=== PATIENT | female | born 1960 | race Caucasian/White ===

== ENCOUNTER → 2021-02-13 | Outpatient (CLI) | payer OTHER ==
[~2021-02-13] MED LIST: ACETAMINOPHEN-1 EAC1 PO; ASPIR 8181 MG PO; ATIVAN1 MG PO; LIPITOR 20 MG T20 M1 PO; LISINOPRIL10 MG PO; NITROGLYCERIN0.4 MG SUBLING; VENTOLIN HFA 1818 GM INH
== END ==
LOC: M.RAD 10:02
PROVIDERS: ATTEND Internal Medicine
DX: Z12.31 Encounter for screening mammogram for malignant neoplasm of breast (principal); N63.20 Unspecified lump in the left breast, unspecified quadrant; R92.8 Other abnormal and inconclusive findings on diagnostic imaging of breast

== ENCOUNTER → 2021-02-18 | Outpatient (CLI) | payer OTHER ==
--- NOTE | 2021-02-26 21:06 | PATH ---
[address] [address] PATHOLOGY RPT PROCEDURE Name: RENEESSIE ST Room: [facility]#: [id number] Admission: 02/18/21 Date of : 56 Discharge: Report #: [id number] Path Case #: [id number] [facility] Accession Number: [id number] . 01 Material submitted: . breast - LEFT BREAST SA TO 5CM FROM NIPPLE. Modifiers: left, 5CM FROM NIPPLE . 01 Clinician provided ICD-10: [id number] . 01 Clinical history: . 7.00 X 6.55 X 3.89CM SA TO 5CM FROM NIPPLE 3:30 US/MAMMOTOME BX/LEFT BREAST MASS COLLECTED: 931 FORMALIN: 0936 . 02 Diagnosis: Left breast SA to 5 cm from nipple, image-guided core biopsy: - PLEOMORPHIC LOBULAR CARCINOMA (HIGH GRADE), SPANNING AT LEAST 12 MM. SEE COMMENT. . (ASAD:ronny; 02/20/2021) . . . Surgical Pathology Cancer Case Summary . INVASIVE CARCINOMA OF THE BREAST: Biopsy . Procedure ___ Other: Image-guided core biopsy . Specimen Laterality ___ Left . Tumor Site ___ Clock position: 3:30 o'clock ___ Distance from nipple: Subareolar to 5 cm . Tumor Size ___ Greatest dimension of largest invasive focus >1 mm, at least 12 mm . Histologic Type ___ Invasive lobular carcinoma . Histologic Grade (Reynold Histologic [place]) [place] [address] PATHOLOGY RPT PROCEDURE Name: ESSIE STOKES Room: [facility].#: [id number] Admission: 02/18/21 Date of : 56 Discharge: Report #: [id number] Path Case #: [id number] Glandular (Acinar)/Tubular Differentiation ___ Score 3 (<10% of tumor area forming glandular/tubular structures) . Nuclear Pleomorphism ___ Score 3 (vesicular nuclei, often with prominent nucleoli, exhibiting marked variation in size and shape, occasionally with very large and bizarre forms) . Mitotic Rate ___ Score 2 . Overall Grade ___ Grade 3 (scores of 8 or 9) . Ductal Carcinoma In Situ (DCIS) ___ Not identified . Lymphovascular Invasion ___ Not identified . Microcalcifications ___ Present in invasive carcinoma ___ Present in non-neoplastic tissue . Ancillary Studies: . Biomarker Studies ___ Pending, block A1 . (AASD:mml; 02/20/2021) [facility] 02/20/2021 1318 Local . 02 Comment: Essentially 100 percent of the submitted tissues are involved by invasive neoplasm. Properly-controlled immunohistochemical studies performed on A1 characterize the neoplastic cells as follows, supporting the classification: . E-cadherin: Negative Keratin EARL: Positive . Breast tumor profile studies are pending on A1 and will be the subject of an addendum report. . Reviewed with Dr. Tere Wasserman on 02/21/2021 who agrees with the diagnosis. . Bridgett Velazquez ([facility] Breast Navigator) notified on a.m. of 02/20/2021[place] [address] PATHOLOGY RPT PROCEDURE Name: ESSIE STOKES Room: [facility]#: [id number] Admission: 02/18/21 Date of : 56 Discharge: Report #: [id number] Path Case #: [id number] . (ASAD:[facility]; 02/20/2021) . 02 Addendum: . Special studies report received from [facility], [address] [place] [address], [address], [place], [address], on case [id number], labeled with their number [id number], dated 02/24/2021. . Breast/Prognostic Marker Analysis . Specimen Site: Lt Breast, SA to 5 cm From Nipple, Breast Carcinoma (Biopsy) Specimen ID #: [id number] . ER (Estrogen Receptor) Positive Percent: 95.00% Analysis: Manual Staining Intensity: Moderate to Strong Internal Control: Present and Positive . MS (Progesterone Receptor) Positive Percent: 95.00% Analysis: Manual Staining Intensity: Moderate to Strong Internal Control: Present and Positive . HER2 Negative Score: 0 Analysis: Manual . Ki-67 Borderline Proliferation Percent: 20.00% Analysis: Manual . Time to Fixation (Cold Ischemic Time): 4 minutes Duration of Fixation: 6 to 72 Hours Type of Fixative: 10% Neutral Buffered Formalin . at [facility]. Leslie Ventura M.D. Pathologist . Methodology: The HER2 Receptor protein expression is analyzed using [place] [address] PATHOLOGY RPT PROCEDURE Name: JACQUELYNKIMMIEESSIE [id number] Admission: 02/18/21 Date of : 56 Discharge: Report #: [id number] Path Case #: [id number] rabbit monoclonal antibody (clone 4B5). This assay is used for diagnostic determination of the HER2 protein over-expression in paraffin embedded, formalin fixed breast cancer tissue on the [place] [employer]. The specimen is processed using a secondary antibody-HRP conjugate detection system. The membrane staining of the tumor is determined either by manual score or image analysis. This antibody is intended for in vitro diagnostic use. The score is reported as 0, 1+, 2+, or 3+. This test is used for clinical purposes. . A rabbit monoclonal antibody (clone SP1) that recognized the Estrogen Receptor is used to perform immunohistochemistry on routinely fixed (formalin) paraffin embedded tissue on the [place] [employer]. The specimen is processed using a secondary antibody-HRP conjugate detection system. The percentage of stained tumor nuclei is determined either manually or by image analysis. This test is intended for in vitro diagnostic use. This test is used for clinical purposes. . A rabbit monoclonal antibody (clone 1E2) that recognized the Progesterone Receptor is used to perform immunohistochemistry on routinely fixed (formalin) paraffin embedded tissue on the [place] [employer]. The specimen is processed using a secondary antibody-HRP conjugate detection system. The percentage of stained tumor nuclei is determined either manually or by image analysis. This test is intended for in vitro diagnostic use. This test is used for clinical purposes. . A rabbit monoclonal antibody (clone 30-9) that recognized Ki67 is used to perform immunohistochemistry on routinely fixed (formalin) paraffin embedded tissue on the [place] [employer]. The specimen is processed using a secondary antibody-HRP conjugate detection system. The percentage of stained tumor nuclei is determined either manually or by image analysis. This test is intended for in vitro diagnostic use. This test is used for clinical purposes. . Intended Use: This antibody is intended for in vitro diagnostic (IVD) use. HER2 (4B5) is a rabbit monoclonal antibody intended for the semi-quantitative detection of HER2 antigen in sections of formalin-fixed, paraffin embedded neoplastic tissue. . This antibody is intended for in vitro diagnostic (IVD) use. Estrogen Receptor (ER) (SP1) is a rabbit monoclonal antibody (IgG) that is intended for the qualitative detection of estrogen receptor (ER) antigen in sections of formalin-fixed, paraffin-embedded tissue. ER is a rabbit monoclonal antibody that recognizes human estrogen receptor alpha. . This antibody is intended for in vitro diagnostic (IVD) use. Progesterone Receptor (MS) (1E2) is a rabbit monoclonal antibody (IgG) that is intended for the qualitative detection of progesterone receptor (MS) antigen in sections of formalin fixed, paraffin embedded tissue. MS is a rabbit [facility] [address] [place] [address] PATHOLOGY RPT PROCEDURE Name: ESSIE STOKES Room: [facility]#: [id number] Admission: 02/18/21 Date of : 56 Discharge: Report #: [id number] Path Case #: [id number] monoclonal antibody that recognizes the A and B forms of the human progesterone receptor. . This antibody is intended for in vitro diagnostic (IVD) use. Ki-67 (30-9) is a rabbit monoclonal antibody (IgG) directed against C-terminal portion of Ki-67 antigen. Staining for Ki-67 can be used to aid in assessing the proliferative activity of normal and neoplastic tissue. Ki-67 is a nuclear protein expressed in proliferating cells. During the cell cycle, the Ki-67 antigen is present in the G1, S, G2 and M phase but is absent in the G0 (quiescent phase). . Disclaimer: This Test was performed by [facility] at [address] [address], [place], [address]. . [facility] is a business unit of [employer] a wholly-owned subsidiary of [employer]. . This assay has not been validated on decalcified tissues. Results should be interpreted with caution if this specimen was decalcified given the likelihood of false negativity on decalcified specimens. . Any image(s) that accompany this report is/are a graphic art sales representative image(s) only and should not be used to render a diagnosis. . This interpretation is contingent on the specimen and the clinical information received. . For any special tests/stains performed, known positive cells or tissues are tested with each marker and examined to ensure positivity. Positive and negative internal controls, if present, react appropriately. . This analysis is an adjunct to the evaluation of the referring physician and does not represent a final diagnosis. . The immunohistochemistry tests performed at [facility]. were validated on tissue fixed in 10% neutral buffered formalin. The performance characteristics of the tests performed on tissue processed in other fixatives is not known. . HER2 testing at [facility] is performed in compliance with the 2018 updated ASCO/CAP Clinical Practice Guideline Focused Update. If the result is EQUIVOCAL (2+), it must be confirmed by an alternative assay such as FISH. . REFERENCE: Les SHERMAN, Anastacio COON, Nadira KH, et al: Human epidermal growth factor receptor 2 testing in breast cancer: ASCO/CAP clinical practice guideline focused update. [place] [address] PATHOLOGY RPT PROCEDURE Name: RENEESSIE Room: [facility]#: [id number] Admission: 02/18/21 Date of : 56 Discharge: Report #: [id number] Path Case #: [id number] 2017;142:[id number]. . HER2 and ER/MS ASCO/CAP guidelines require fixation in neutral buffered formalin for a minimum of 6 and a maximum of 72 hours. Fixation times less than 6 hours may not adequately preserve cell proteins. Fixation times longer than 72 hours may cause excess cross-linking of proteins reducing the antigen available for staining. Either scenario can cause reduced staining; hence false negative results are possible and should be considered for these situations if the HER2 IHC score is less than 3+ or ER or MS is negative (no staining or <1% positive). It is recommended that specimens fixed longer than 72 hours with HER2 IHC scores less than 3+ be confirmed by HER2 FISH. The time from biopsy/excision to fixation in formalin (cold ischemic time) must be less than 1 hour. Time to fixation (cold ischemic time) greater than 1 hour should be interpreted with caution. HER2 testing, mainly HER2 by FISH, is particularly vulnerable since excessive cold ischemic time results in preferential loss of HER2 probe signals that may lead to false negative results. Use of unstained slides cut more than 6 weeks before analysis is not recommended. . ER/PgR testing at [facility] [employer] is performed in compliance with the ASCO/CAP Clinical Practice Guidelines. If the result for ER is 1-10% it is reported as Low Positive, < 1% is Negative and > 10% is Positive. PgR is reported as Negative if < 1% and Positive if > or equal to 1%. . REFERENCE: Nadira KH, Anastacio COON, Maria Teresa M,et al. Estrogen and progesterone receptor testing in breast cancer. ASCO/CAP guideline update. Arch Pathol Lab Med. 2020;144:545-563. . . SCORE STAINING PATTERN IN TUMOR CELLS INTERPRETATION RESULTS 0 No staining observed or incomplete, faint membrane staining in less than or equal to 10% of tumor cells. Negative 1+ Incomplete, faint membrane staining in greater than 10% of tumor cells. Negative 2+ Weak to moderate complete membrane staining observed in greater than 10% of tumor cells. Equivocal* *Must be confirmed by alternative assay (IHC/FISH/Dual NOLAN) 3+ Intense, complete membrane staining in greater than 10% of tumor cells. Positive . A complete copy [place] [address] PATHOLOGY RPT PROCEDURE Name: ESSIE STOKES Room: [facility]#: [id number] Admission: 02/18/21 Date of : 56 Discharge: Report #: [id number] Path Case #: [id number] . Professional and Technical services performed by [facility] at [address], [place] [address]. . (MLK:am 02/24/2021) . [facility]/02/26/2021 Addendum Electronically Signed by Arben Wilkins MD, Pathologist . 02 Electronically signed: . Yong Saunders MD, Pathologist NPI- [id number] . 01 Gross description: . The specimen is received in formalin, labeled "Essie Stokes, left breast SA to 5 cm from nipple" received as 2 soft toscano-yellow tissue cores measuring up to 1.5 cm x 0.2 cm. The specimen is entirely submitted A1. The specimen is removed from the patient at 0932 hours and placed in formalin at 0936 hours on Thursday, February 18, 2021. The specimen is removed from formalin at 11:30pm. The specimen is in formalin for greater than 6 hours and less than 72 hours. ([facility]; 02/18/2021) NGUYEN/NGUYEN 02/20/2021 1303 Local . 02 Pathologist provided ICD-10: C50.912 . 02 CPT . 457486, A29192, U21495 Specimen Comment: A courtesy copy of this report has been sent to [phone], [phone] Specimen Comment: [id number] Specimen Comment: Report sent to / DR VELAZQUEZ Performed at: 01 [facility] [id number] [facility] [address], [place], [place] [id number] MD Dominick Polk MD Phone: [phone] Performed at: [address] [facility] [address] [facility] , [place], [place] [id number] MD Yong Saunders MD Phone: [phone]
== END ==
LOC: M.ULTRA 08:04
PROVIDERS: ATTEND Internal Medicine
DX: C50.912 Malignant neoplasm of unspecified site of left female breast (principal); R92.8 Other abnormal and inconclusive findings on diagnostic imaging of breast; E11.9 Type 2 diabetes mellitus without complications; Z79.899 Other long term (current) drug therapy; Z79.82 Long term (current) use of aspirin

== ENCOUNTER → 2021-03-05 | Outpatient (CLI) | payer OTHER ==
[2021-03-05 09:00] LABS: CREATININE 0.8 mg/dL (0.6-1.3)
== END ==
LOC: M.LAB 08:00 → M.MRI 08:30
PROVIDERS: ATTEND Surgery
DX: C50.912 Malignant neoplasm of unspecified site of left female breast (principal); N64.89 Other specified disorders of breast